=== PATIENT | female | born 1985 | race African-American/Black ===

== ENCOUNTER 2020-03-31 15:22 | Emergency (ER) | payer SELFPAY ==
[~2020-03-31] VITALS: Ht 162.6 cm; Wt 91.4 kg
[2020-03-31 15:40] VITALS: BP 185/122; PULSE 101; TEMP 98.3
[2020-03-31 18:21] LABS: BASO # 0.1 (0.0-0.2); BASO % 0.5 % (0.0-2.0); EOS # 0.2 (0.0-0.7); EOS % 2.1 % (0-4.0); GRAN # 4.9 (1.4-6.5); GRAN % 52.2 % (42.2-75.2); HEMATOCRIT 39.5 % (37.0-47.0); HEMOGLOBIN 12.4 g/dl (12.5-16.0); LYMPH # 3.5 (1.2-3.4); LYMPH % 37.7 % (20.0-51.0); MEAN CELL VOLUME 84 fl (80.0-100.0); MEAN CORPUSCULAR HEMOGLOBIN 26 pg (27.0-31.0); MEAN CORPUSCULAR HGB CONC 31 g/dl (33.0-37.0); MEAN PLATELET VOLUME 10.4 fl (7.4-10.4); MONO # 0.7 (0.1-0.6); MONO % 7.3 % (1.7-9.3); PLATELET COUNT 223 K/mm3 (130-400)
[2020-03-31 18:28] LABS: RETIC # 0.06 M/mm3 (0.02-0.16); RETIC % 1.2 % (0.5-3.52)
[2020-03-31 18:29] LABS: ALBUMIN 4.5 gm/dL (3.5-5.0); BILIRUBIN,TOTAL 0.4 mg/dL (0.0-1.0); CALCIUM 9.2 mg/dL (8.4-10.2); CREATININE, serum 0.74 (0.52-1.25); POTASSIUM 3.6 mmol/L (3.4-5.0); TOTAL PROTEIN 8.1 gm/dL (6.4-8.2)
[2020-03-31] MEDS ORDERED: ROXICODONE 55 MG/TAB PO (18:39)
== END 2020-03-31 19:20 | disposition home or self-care (01) ==
LOC: COL.ER 15:22
PROVIDERS: Physician Assistant
DX: D57.00 Hb-SS disease with crisis, unspecified (principal); F17.210 Nicotine dependence, cigarettes, uncomplicated; Z88.0 Allergy status to penicillin; Z88.6 Allergy status to analgesic agent; Z88.8 Allergy status to other drugs, medicaments and biological substances
CPT/HCPCS: J7030